=== PATIENT | male | born 1985 | race Caucasian/White ===

== ENCOUNTER 2021-10-06 12:10 | Emergency (ER) | payer BC ==
[2021-10-06] MEDS ORDERED: Ketorolac Tromethamine 60 MG/2 ML VIAL ONE (12:49)
== END 2021-10-06 13:00 | disposition home or self-care (01) ==
LOC: NAV ERS 12:10
DX: S39.012A Strain of muscle, fascia and tendon of lower back, initial encounter (principal); F17.290 Nicotine dependence, other tobacco product, uncomplicated; X58.XXXA Exposure to other specified factors, initial encounter
CPT/HCPCS: 96372; 99283; J1885

== ENCOUNTER 2021-10-12 04:58 | Emergency (ER) | payer BC, SELFPAY ==
[2021-10-12] MEDS ORDERED: Ketorolac Tromethamine 60 MG/2 ML VIAL ONE (05:53)
== END 2021-10-12 06:15 | disposition home or self-care (01) ==
LOC: NAV ERS 04:58
DX: M54.16 Radiculopathy, lumbar region (principal); F17.210 Nicotine dependence, cigarettes, uncomplicated; Z79.899 Other long term (current) drug therapy
CPT/HCPCS: 96372; 99283; J1885